=== PATIENT | female | born 1980 | race African-American/Black ===

== ENCOUNTER 2016-11-09 01:56 | Emergency (ER) | payer SELFPAY ==
[~2016-11-09] VITALS: Ht 165.1 cm; Wt 66.7 kg
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
[2016-11-09] MEDS ORDERED: TDAP [DIPH/PERTUSSIS/TET] 0.5 ML VIAL IM ONE ×2 (02:04→02:30)
[2016-11-09] MEDS ORDERED: HYDROCODONE/APAP 5/325MG 1 EACH TABLET ONE ×2 (02:04→03:50)
--- NOTE | 2016-11-09 02:17 | NUR ---
XRAY IN PROGRESS AT THE BEDSIDE.
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
[2016-11-09] MEDS ORDERED: HYDROCODONE/APAP 5/325MG 1 EACH TABLET PO ONE ×2 (02:30→04:00)
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
--- NOTE | 2016-11-09 02:38 | NUR ---
ARMINDA WARNER IS AT THE BEDSIDE SPEAKING TO THE PT.
[2016-11-09 03:30] VITALS: BP 128/75
--- NOTE | 2016-11-09 03:33 | NUR ---
DR. PEREZ IS AT THE BEDSIDE SUTURING PT'S LAC.
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
--- NOTE | 2016-11-09 04:09 | NUR ---
ARMINDA WARNER IS STILL AT THE BEDSIDE SPEAKING TO THE PT.
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
== END 2016-11-09 05:12 | disposition home or self-care (01) ==
LOC: ER 01:57
DX: S09.90XA Unspecified injury of head, initial encounter (principal); S51.012A Laceration without foreign body of left elbow, initial encounter; S50.02XA Contusion of left elbow, initial encounter; S80.212A Abrasion, left knee, initial encounter; M62.838 Other muscle spasm; Y04.2XXA Assault by strike against or bumped into by another person, initial encounter; Y93.89 Activity, other specified; Y92.89 Other specified places as the place of occurrence of the external cause; Y99.9 Unspecified external cause status
CPT/HCPCS: 12002; 70450; 73080; 90471; 90715; 99284; A4606; A6402; J3490; Z7610